=== PATIENT | male | born 1985 ===

== ENCOUNTER 2017-01-03 13:45 | Emergency (ER) | payer SELFPAY ==
[2017-01-03 14:05] VITALS: RESP 18; TEMP 97.9; O2SAT 97
--- NOTE | 2017-01-03 16:12 | C.PDOC ---
History Of Present Illness 31-year-old male brought to the emergency department with for evaluation of alcohol intoxication. Patient states " I am okay" but is not currently answering questions. No complaints at this time. Time Seen by Provider: 01/03/17 14:00 Chief Complaint (Nursing): Substance Abuse History Per: Patient, EMS History/Exam Limitations: intoxication Modifying Factor(s): Alcohol Past Medical History Reviewed: Historical Data, Nursing Documentation, Vital Signs Vital Signs: Last Vital Signs Temp 97.9 F 01/03/17 14:04 Pulse 82 01/03/17 17:40 Resp 18 01/03/17 17:40 BP 132/82 01/03/17 17:40 Pulse Ox 97 01/03/17 18:01 Family History: States: Unknown Family Hx - Social History Hx Alcohol Use: Yes Hx Substance Use: No - Immunization History Hx Tetanus Toxoid Vaccination: No Hx Influenza Vaccination: No Hx Pneumococcal Vaccination: No Review Of Systems Review Of Systems: ROS cannot be obtained secondary to pt's inabilty to answer questions. (patient refusing to answer questions) Physical Exam - Physical Exam Appears: Non-toxic, Unkempt, Other (smells of ETOH) Head: Atraumatic, Normacephalic Eye(s): bilateral: Normal Inspection Oral Mucosa: Moist Neck: Normal, Normal ROM, No Midline Cervical Tenderness, No Paracervical Tenderness, No Step Off Deformity, Supple Cardiovascular: Rhythm Regular Respiratory: Normal Breath Sounds, No Rales, No Rhonchi, No Wheezing Extremity: Other (moving all extremities spontaneously) Extremity: Bilateral: Atraumatic, Normal Color And Temperature, Normal ROM Neurological/Psych: Other (awake, alert, intoxicated, moving all 4 extremities spontaneously) ED Course And Treatment O2 Sat by Pulse Oximetry: 97 (RA) Pulse Ox Interpretation: Normal Progress Note: ETOH level and accucheck ordered and reviewed. Patients etoh level is 344 and accuchek is 158. Reevaluation Time: 17:00 Reassessment Condition: Improved (Patient witnessed by ED staff ambulating normally - apparently eloped from ED.) Disposition - Disposition Disposition: ELOPEMENT - ER ONLY Disposition Time: 17:00 Condition: STABLE - Clinical Impression Clinical Impression: Alcohol intoxication - Scribe Statement The provider has reviewed the documentation as recorded by the Scribglory Mac All medical record entries made by the Scribe were at my direction and personally dictated by me. I have reviewed the chart and agree that the record accurately reflects my personal performance of the history, physical exam, medical decision making, and the department course for this patient. I have also personally directed, reviewed, and agree with the discharge instructions and disposition.
[2017-01-03 18:13] VITALS: BP 132/82; PULSE 82
== END 2017-01-03 17:05 | disposition left against medical advice (07) ==
LOC: EDBD → C.ER 13:45
DX: F10.120 Alcohol abuse with intoxication, uncomplicated (principal); Y90.8 Blood alcohol level of 240 mg/100 ml or more
CPT/HCPCS: 82948; 99284; G0480